=== PATIENT | male | born 1985 | race Caucasian/White ===

== ENCOUNTER 2021-10-08 20:10 | Emergency (ER) | payer OTHER ==
[~2021-10-08] VITALS: Ht 175.3 cm; Wt 99.8 kg
[2021-10-08] MEDS ORDERED: ACETAMINOPHEN 325 MG TAB PO ONE ×2 (20:35→21:00)
[2021-10-09] MEDS ORDERED: IOHEXOL 350 MG/ML 100ML IJ ONE (00:38)
[2021-10-09 04:09] VITALS: BP 149/76
== END 2021-10-09 04:05 | disposition home or self-care (01) ==
LOC: EDBD 20:10 → ER 20:17
DX: R07.89 Other chest pain (principal); J45.909 Unspecified asthma, uncomplicated; V49.49XA Driver injured in collision with other motor vehicles in traffic accident, initial encounter; Y93.89 Activity, other specified; Y92.410 Unspecified street and highway as the place of occurrence of the external cause; Y99.8 Other external cause status
CPT/HCPCS: 71045; 71260; 74177; 93005; 99285; Q9967